=== PATIENT | male | born 1995 ===

== ENCOUNTER 2018-06-20 02:47 | Emergency (ER) | payer SELFPAY ==
[~2018-06-20] VITALS: Ht 180.3 cm; Wt 86.2 kg
--- NOTE | 2018-06-20 03:05 | NUR ---
CALLED [employer] AND SPOKE WITH DIRECTOR OF FINANCE 192 AND REPORTED INCIDENT TO THEM. CASE #[id number]. DISPATCH WILL SEND PD UNIT TO INTERVIEW PATIENT
--- NOTE | 2018-06-20 03:27 | NUR ---
[employer] at bedside to interview pt.
--- NOTE | 2018-06-20 03:44 | NUR ---
Dr. Samaniego at bedside for MSE.
--- NOTE | 2018-06-20 05:20 | NUR ---
Patient eloped from facility. ER physician notified. Last seen [phone], said they just wanted to talk to their friend outside.
--- NOTE | 2018-06-20 05:34 | NUR ---
ATTEMPTED TO CALL PATIENT'S PHONE [phone] TO COME BACK TO HOSPITAL SO THAT DR MONTANEZ CAN GIVE PROPER REFERALS AND TX OR TELL PATIENT TO GO TO NEAREST ER. NO ANSWER FROM PHONE
== END 2018-06-20 05:22 | disposition left against medical advice (07) ==
LOC: ER 02:49
DX: S02.82XA Fracture of other specified skull and facial bones, left side, initial encounter for closed fracture (principal); S02.40DA Maxillary fracture, left side, initial encounter for closed fracture; S02.2XXA Fracture of nasal bones, initial encounter for closed fracture; Y08.89XA Assault by other specified means, initial encounter; Y93.89 Activity, other specified; Y92.89 Other specified places as the place of occurrence of the external cause; Y99.8 Other external cause status
CPT/HCPCS: 70450; 70486; 72125; A4217; A4663